=== PATIENT | female | born 1930 | race Caucasian/White ===

== ENCOUNTER 2018-05-04 09:15 | Observation (INO) ==
[2018-05-04] MEDS ORDERED: ACETAMINOPHEN 325 MG TABLET PO PRN (09:53)
[2018-05-04] MEDS ORDERED: ONDANSETRON 4 MG/2 ML VIAL IV PRN (09:53)
[2018-05-04] MEDS ORDERED: DOCUSATE SODIUM 100 MG CAPSULE PO PRN (09:53)
[2018-05-04] MEDS: SODIUM CHLORIDE 0.9% 1,000 ML IV SCH (10:15)
[2018-05-04 11:19] LABS: Basophils % 0.5 % (0.0-0.8); Eosinophils # 0.1 10*3/uL (0.0-0.87); Eosinophils % 1.6 % (0.00-10.9); Hematocrit 34.9 VOL% (35.7-47.0); Hemoglobin 10.9 GM/DL (12.0-16.0); Immature Granulocytes % 0.3 %; Immature Granulocytes Absolute 0.02 #; Lymphocytes # 0.9 10*3/uL (1.4-4.0); Lymphocytes % 14.9 % (21.3-54.2); Mean Corpuscular HGB Conc 31.2 GM/DL (32-36); Mean Corpuscular Hemoglobin 29 PG (27-34); Mean Corpuscular Volume 92.8 FL (87-102); Mean Platelet Volume 11.4 FL (9.6-12.0); Monocytes # 0.7 10*3/uL (0.11-0.8); Monocytes % 11.1 % (1.7-12.7); Neutrophils # 4.5 10*3/uL (1.4-7.4); Neutrophils % 71.6 % (38.7-73.9); Platelet Count 265 T/CUMM (130-400); Red Blood Count 3.76 MC/CUMM (3.8-5.5); White Blood Count 6.3 T/CUMM (4-12)
[2018-05-04 11:37] LABS: Bilirubin,Total 0.4 MG/DL (0.2-1.0); Calcium 8.4 MG/DL (8.5-10.1); Potassium 4.1 MMOL/L (3.5-5.1)
[2018-05-04 11:51] LABS: Troponin I 0.019 NG/ML (0.00-0.045)
[2018-05-04] MEDS ORDERED: ASPIRIN EC 81 MG TABLET PO SCH (12:30)
[2018-05-04 13:23] LABS: Troponin I < 0.015 NG/ML (0.00-0.045)
[2018-05-04] MEDS ORDERED: ENOXAPARIN 30 MG/0.3 ML SYRINGE SUBCUT SCH ×2 (16:00→21:00)
[2018-05-04 19:02] LABS: Troponin I 0.017 NG/ML (0.00-0.045)
[2018-05-04] MEDS: ASPIRIN EC 81 MG TABLET PO SCH (21:04)
[2018-05-04] MEDS: cycloSPORINE OPH EMUL 1 VIAL BOTH EYES SCH (21:05)
[2018-05-05 04:50] LABS: Basophils % 0.5 % (0.0-0.8); Eosinophils # 0.1 10*3/uL (0.0-0.87); Eosinophils % 1.8 % (0.00-10.9); Hematocrit 30.1 VOL% (35.7-47.0); Hemoglobin 9.2 GM/DL (12.0-16.0); Immature Granulocytes % 0.2 %; Immature Granulocytes Absolute 0.01 #; Lymphocytes # 1.2 10*3/uL (1.4-4.0); Lymphocytes % 21.9 % (21.3-54.2); Mean Corpuscular HGB Conc 30.6 GM/DL (32-36); Mean Corpuscular Hemoglobin 29 PG (27-34); Mean Corpuscular Volume 93.5 FL (87-102); Mean Platelet Volume 11.9 FL (9.6-12.0); Monocytes # 0.8 10*3/uL (0.11-0.8); Monocytes % 14.1 % (1.7-12.7); Neutrophils # 3.4 10*3/uL (1.4-7.4); Neutrophils % 61.5 % (38.7-73.9); Platelet Count 214 T/CUMM (130-400); Red Blood Count 3.22 MC/CUMM (3.8-5.5); White Blood Count 5.5 T/CUMM (4-12)
[2018-05-05 05:01] LABS: Calcium 7.9 MG/DL (8.5-10.1); Osmolality,Calculated 285.4 MOS/KG (273-304); Potassium 4.4 MMOL/L (3.5-5.1)
[2018-05-05 05:06] LABS: Risk Ratio 3.53; VLDL CHOLESTEROL 46.6 MG/DL
[2018-05-05] MEDS ORDERED: PANTOPRAZOLE 40 MG TABLET PO SCH (09:00)
[2018-05-05] MEDS ORDERED: METOPROLOL TARTRATE 25 MG TABLET PO SCH (09:00)
[2018-05-05] MEDS ORDERED: ESCITALOPRAM 10 MG TABLET PO SCH (09:00)
[2018-05-05] MEDS ORDERED: DIFLUPREDNATE 0.05% OPH EMUL 5 ML BOTTLE BOTH EYES SCH (09:00)
[2018-05-05] MEDS ORDERED: MAGNESIUM CHLORIDE 64 MG TABLET PO SCH ×2 (09:00→21:00)
[2018-05-05] MEDS ORDERED: SIMVASTATIN 10 MG TABLET PO SCH (09:00)
[2018-05-05] MEDS ORDERED: BROMFENAC SODIUM BOTH EYES SCH (09:00)
[2018-05-05] MEDS: ASPIRIN EC 81 MG TABLET PO SCH (09:41)
[2018-05-05] MEDS: cycloSPORINE OPH EMUL 1 VIAL BOTH EYES SCH (09:42)
[2018-05-05] MEDS ORDERED: SERTRALINE 25 MG TABLET PO SCH (10:00)
[2018-05-05] MEDS ORDERED: MAGNESIUM SULF RIDER 4 GM in PREMIX 1 EACH IV PRN (10:20)
[2018-05-05] MEDS ORDERED: MAGNESIUM SULF RIDER 2 GM in PREMIX 1 EACH IV PRN (10:20)
[2018-05-05] MEDS ORDERED: SIMVASTATIN 20 MG TABLET PO SCH (10:56)
[2018-05-05 16:07] VITALS: BP 149/68
[2018-05-05] MEDS: SODIUM CHLORIDE 0.9% 1,000 ML IV SCH (17:22)
== END 2018-05-05 18:00 ==
LOC: N.4E
PROVIDERS: ADMIT Family Medicine; ATTEND Family Medicine